=== PATIENT | male | born 1945 | race Caucasian/White ===

== ENCOUNTER → 2016-12-19 | Emergency (ER) | payer OTHER ==
--- NOTE | 2016-12-19 19:23 | ED CLINICAL REPORT ---
Clinical Report - Physicians/Mid Levels [facility] [address] [place] [address] 12/19/2016 18:56 Patient: ARLENE PANDA Time Seen: 19:08. Arrived- By ambulance. Historian- EMS personnel. HISTORY OF PRESENT ILLNESS Chief Complaint: "code stroke". This started today. (the patient was brought in by EMS. They report that his saw him early this morning and that he was in his usual state of health. However they say that he started feeling poorly at 3:00 this afternoon. They were concerned that maybe he was having a stroke because he was slurring his speech and seemed confused though they report that his FAST exam was otherwise unremarkable. The patient tells me that he is having severe pain in his back and doesn't feel well but is not able to be more specific. EKGs performed by the ambulance crew show atrial fibrillation and the patient denies that he has ever had this. Medics state that the patient has a history of an aortic aneurysm.). REVIEW OF SYSTEMS Unobtainable (due to severe distress). PAST HISTORY Problems: Aortic Aneurysm. Additional Surgeries: Unknown. Medications: Herbal medications only. Allergies: No Known Drug Allergy. None. ADDITIONAL NOTES The nursing notes have been reviewed. PHYSICAL EXAM Vital Signs: 12/19/2016 19:17 BP: 110/95. HR: 110. O2 saturation: 95%. Temp: 94.8 F. Have been reviewed. Appearance: Alert. He appears ill and uncomfortable, is ashen, is confused and has slurred speech. Patient in severe distress. Eyes: Pupils equal, round and reactive to light. ENT: Pharynx normal. Neck: Neck supple. No carotid bruit. CVS: Tachycardia. Respiratory: Decreased air movement. No rales or rhonchi. Abdomen: No visible injury. Soft and nontender. Bowel sounds normal. No organomegaly. No mass. Obese. Skin: Cool skin. Extremities: Extremities exhibit normal ROM. No calf tenderness. No lower extremity edema. Neuro: Altered mental status: confused and disoriented to place and time. No cranial nerve deficit. No motor deficit. He has had generalized weakness. No sensory deficit. PROGRESS AND PROCEDURES Course of Care: 19:08. I discussed the case with Dr. Maki Pappas, emergency physician at [facility] in [place]. I explained to her that as we were working the patient up and had him on the CT scanner in order to evaluate his brain, chest abdomen and pelvis given his prior aortic aneurysm history and his back pain, our CT scanner stopped functioning. Therefore I contacted her and requested that we be able to transfer him so that he could be worked up further. She agreed to the transfer. He was placed back in the ambulance and they proceeded to that hospital. Consult obtained. Disposition: Transferred. CLINICAL IMPRESSION New onset atrial fibrillation. Acute back pain. Possible aortic dissection. known aortic aneurysm. (Electronically signed by Anthony Denson MD 12/19/2016 21:34) Addenda for ARLENE PANDA VisitID: [id number] Date: 12/19/2016 12/19/2016 20:29 [place] [facility] [place]; (Electronically signed by Annita Mcgarry Tech1 - 12/19/2016 20:29)
--- NOTE | 2016-12-19 19:23 | ED ORDER SUMMARY ---
..... Patient: ARLENE PANDA OrderSheet [facility] VisitID: [id number] [address] [place] [address] 71y, M Registration Date/Time: 12/19/2016 ORDER SHEET Weight: 90.7 kg (estimated) Allergies: No Known Drug Allergy, None GENERAL ORDERS: CT Head wo Cont Urgent (18:57 12/19/2016 HSoule verbal order read back to Natali CALVIN) (Ack 18:59 North) MEDICATION ORDERS: IV FLUIDS: ORDER SHEET NOTES: [Electronically signed by Myesha Rodriguez R.N. (19:37 12/19/2016)] [Electronically signed by Anthony Denson MD (21:34 12/19/2016)] [Electronically locked/signed by Myesha Rodriguez R.N. (19:37 12/19/2016)]
--- NOTE | 2016-12-19 19:23 | ED CLINICAL REPORT ---
Clinical Report - Physicians/Mid Levels [facility] [address] [place] [address] 12/19/2016 18:56 Patient: ARLENE PANDA Time Seen: 19:08. Arrived- By ambulance. Historian- EMS personnel. HISTORY OF PRESENT ILLNESS Chief Complaint: "code stroke". This started today. (the patient was brought in by EMS. They report that his saw him early this morning and that he was in his usual state of health. However they say that he started feeling poorly at 3:00 this afternoon. They were concerned that maybe he was having a stroke because he was slurring his speech and seemed confused though they report that his FAST exam was otherwise unremarkable. The patient tells me that he is having severe pain in his back and doesn't feel well but is not able to be more specific. EKGs performed by the ambulance crew show atrial fibrillation and the patient denies that he has ever had this. Medics state that the patient has a history of an aortic aneurysm.). REVIEW OF SYSTEMS Unobtainable (due to severe distress). PAST HISTORY Problems: Aortic Aneurysm. Additional Surgeries: Unknown. Medications: Herbal medications only. Allergies: No Known Drug Allergy. None. ADDITIONAL NOTES The nursing notes have been reviewed. PHYSICAL EXAM Vital Signs: 12/19/2016 19:17 BP: 110/95. HR: 110. O2 saturation: 95%. Temp: 94.8 F. Have been reviewed. Appearance: Alert. He appears ill and uncomfortable, is ashen, is confused and has slurred speech. Patient in severe distress. Eyes: Pupils equal, round and reactive to light. ENT: Pharynx normal. Neck: Neck supple. No carotid bruit. CVS: Tachycardia. Respiratory: Decreased air movement. No rales or rhonchi. Abdomen: No visible injury. Soft and nontender. Bowel sounds normal. No organomegaly. No mass. Obese. Skin: Cool skin. Extremities: Extremities exhibit normal ROM. No calf tenderness. No lower extremity edema. Neuro: Altered mental status: confused and disoriented to place and time. No cranial nerve deficit. No motor deficit. He has had generalized weakness. No sensory deficit. PROGRESS AND PROCEDURES Course of Care: 19:08. I discussed the case with Dr. Maki Pappas, emergency physician at [facility] in [place]. I explained to her that as we were working the patient up and had him on the CT scanner in order to evaluate his brain, chest abdomen and pelvis given his prior aortic aneurysm history and his back pain, our CT scanner stopped functioning. Therefore I contacted her and requested that we be able to transfer him so that he could be worked up further. She agreed to the transfer. He was placed back in the ambulance and they proceeded to that hospital. Consult obtained. Disposition: Transferred. CLINICAL IMPRESSION New onset atrial fibrillation. Acute back pain. Possible aortic dissection. known aortic aneurysm. (Electronically signed by Anthony Denson MD 12/19/2016 21:34) Addenda for ARLENE PANDA VisitID: [id number] Date: 12/19/2016 12/19/2016 20:29 Authorization for transfer faxed [place] [facility] [place]; (Electronically signed by Annita Mcgarry Tech1 - 12/19/2016 20:29)
--- NOTE | 2016-12-19 19:23 | ED NURSING NOTES ---
Clinical Report - Nurses [facility] [address] [place] [address] 12/19/2016 18:56 Patient: ARLENE PANDA [facility]#: [id number] TRIAGE Triage time 1851Dec 19 2016. Acuity: LEVEL 2. Chief Complaint: IMPAIRED SPEECH. Alert. SUMMER COMA SCORE: [place] Coma Scale: 14- eyes open spontaneously (4); best verbal response- disoriented (4); best motor response- obeys commands (6). --19:26 Myesha Rodriguez R.N. 19:17 12/19/16. BP: 110/95. HR: 110. O2 saturation: 95%. Temp: 94.8 F. --19:26 Myesha Rodriguez R.N. Weight: 90.7 kg estimated. Height/Length: 70 inches Estimated. BMI: 28.7. --18:58 Myesha Rodriguez R.N. Medications Herbal medications only. --19:20 Myesha Rodriguez R.N. Allergies No Known Drug Allergy. --19:20 Myesha Rodriguez R.N. None. --19:20 Myesha Rodriguez R.N. History Arrived by EMS. Historian: patient. This started today. Patient was reported to be last known well (0530 by , pt states 1500). Onset was abrupt. (1500). He has had altered mental status and difficulty with speech. 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 PAST MEDICAL HX: Immunizations: status is unknown. --19:26 Myesha Rodriguez R.N. PROBLEMS: Aortic Aneurysm. --19:21 Myesha Rodriguez R.N. ADDITIONAL SURGERIES: Unknown. --19:21 Myesha Rodriguez R.N. NURSING PROGRESS NOTES Patient transported to CT by stretcher with nurse. (185). Patient waiting for transportation. ( pt was on CT table at [address] was down. He was then loaded on stretcher and transferred to [place] at 1908). --19:29 Myesha Rodriguez R.N. Finger stick glucose: 228 mg/dL 1857Dec 19 2016; performed by nurse. --19:33 Myesha Rodriguez R.N. DISPOSITION / DISCHARGE 18:56 12/19/2016 Site #1 started prior to arrival by EMS via IV in the left antecubital space with an 20g angiocath. Saline lock flushed with 10 mL saline. --19:36 Myesha Rodriguez R.N. Departure time: 1907. Condition at departure: unchanged. Transferred to [facility]. Summary of care provided to transfer facility (19:08 Dec 19 2016). Report was given to a nurse via a phone call. Report included patient's care, treatment and condition (including any recent changes). All questions were answered. Report was acknowledged. (MARCE CARRANZA). --19:36 Myesha Rodriguez R.N. Locked/Released at 12/19/2016 19:37 by Myesha Rodriguez R.N.
--- NOTE | 2016-12-19 19:23 | ED NURSING NOTES ---
Clinical Report - Nurses [facility] [address] [place] [address] 12/19/2016 18:56 Patient: ARLENE PANDA [facility]#: [id number] TRIAGE Triage time 1851Dec 19 2016. Acuity: LEVEL 2. Chief Complaint: IMPAIRED SPEECH. Alert. SUMMER COMA SCORE: [place] Coma Scale: 14- eyes open spontaneously (4); best verbal response- disoriented (4); best motor response- obeys commands (6). --19:26 Myesha Rodriguez R.N. 19:17 12/19/16. BP: 110/95. HR: 110. O2 saturation: 95%. Temp: 94.8 F. --19:26 Myesha Rodriguez R.N. Weight: 90.7 kg estimated. Height/Length: 70 inches Estimated. BMI: 28.7. --18:58 Myesha Rodriguez R.N. Medications Herbal medications only. --19:20 Myesha Rodriguez R.N. Allergies No Known Drug Allergy. --19:20 Myesha Rodriguez R.N. None. --19:20 Myesha Rodriguez R.N. History Arrived by EMS. Historian: patient. This started today. Patient was reported to be last known well (0530 by , pt states 1500). Onset was abrupt. (1500). He has had altered mental status and difficulty with speech. 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 PAST MEDICAL HX: Immunizations: status is unknown. --19:26 Myesha Rodriguez R.N. PROBLEMS: Aortic Aneurysm. --19:21 Myesha Rodriguez R.N. ADDITIONAL SURGERIES: Unknown. --19:21 Myesha Rodriguez R.N. NURSING PROGRESS NOTES Patient transported to CT by stretcher with nurse. (185). Patient waiting for transportation. ( pt was on CT table at [address] was down. He was then loaded on stretcher and transferred to [place] at 1908). --19:29 Myesha Rodriguez R.N. Finger stick glucose: 228 mg/dL 1857Dec 19 2016; performed by nurse. --19:33 Myesha Rodriguez R.N. DISPOSITION / DISCHARGE 18:56 12/19/2016 Site #1 started prior to arrival by EMS via IV in the left antecubital space with an 20g angiocath. Saline lock flushed with 10 mL saline. --19:36 Myesha Rodriguez R.N. Departure time: 1907. Condition at departure: unchanged. Transferred to [facility]. Summary of care provided to transfer facility (19:08 Dec 19 2016). Report was given to a nurse via a phone call. Report included patient's care, treatment and condition (including any recent changes). All questions were answered. Report was acknowledged. (MARCE CARRANZA). --19:36 Myesha Rodriguez R.N. Locked/Released at 12/19/2016 19:37 by Myesha Rodriguez R.N.
--- NOTE | 2016-12-19 19:23 | ED ORDER SUMMARY ---
..... Patient: ARLENE PANDA OrderSheet [facility] VisitID: [id number] [address] [place] [address] 71y, M Registration Date/Time: 12/19/2016 ORDER SHEET Weight: 90.7 kg (estimated) Allergies: No Known Drug Allergy, None GENERAL ORDERS: CT Head wo Cont Urgent (18:57 12/19/2016 HSoule verbal order read back to Natali CALVIN) (Ack 18:59 North) MEDICATION ORDERS: IV FLUIDS: ORDER SHEET NOTES: [Electronically signed by Myesha Rodriguez R.N. (19:37 12/19/2016)] [Electronically signed by Anthony Denson MD (21:34 12/19/2016)] [Electronically locked/signed by Myesha Rodriguez R.N. (19:37 12/19/2016)]
--- NOTE | 2016-12-19 21:34 | ED DISCHARGE INSTRUCTIONS ---
Patient: ARLENE PANDA General Instructions [facility] VisitID: [id number] [address] [place] [address] 71y, M Registration Date/Time: 12/19/2016 New onset atrial fibrillation. Acute back pain. known aortic aneurysm. (Electronically signed by Anthony Denson MD 12/19/2016 21:34)
--- NOTE | 2016-12-19 21:34 | ED MED RECONCILIATION SUMMARY ---
Patient: ARLENE PANDA Medication Reconciliation Report [facility] VisitID: [id number] [address] [place] [address] 71y, M Registration Date/Time: 12/19/2016 Weight: 90.7 kg Height/Length: 70 in. BMI: 28.7 ALLERGIES: No Known Drug Allergy, None The patient's Home Medications are listed below: THE FOLLOWING MEDICATIONS NEED TO BE RECONCILED: Herbal medications only The source(s) of the original Home Medication information: Not obtained. The following Medications were given to the patient in the Emergency Department: None. The following Medications were prescribed to the patient: None.
--- NOTE | 2016-12-19 21:34 | ED DISCHARGE INSTRUCTIONS ---
Patient: ARLENE PANDA General Instructions [facility] VisitID: [id number] [address] [place] [address] 71y, M Registration Date/Time: 12/19/2016 New onset atrial fibrillation. Acute back pain. known aortic aneurysm. (Electronically signed by Anthony Denson MD 12/19/2016 21:34)
--- NOTE | 2016-12-19 21:34 | ED MAR SUMMARY ---
..... Medication Administration Record [facility] [address] [place], [place] [id number] Patient: ARLENE PANDA Visit ID: [id number] 71y, M Weight: 90.7 kg Height/Length: 70 in BMI: 28.7 ALLERGIES: No Known Drug Allergy, None
--- NOTE | 2016-12-19 21:34 | ED MAR SUMMARY ---
..... Medication Administration Record [facility] [address] [place] [id number] Patient: ARLENE PANDA Visit ID: [id number] 71y, M Weight: 90.7 kg Height/Length: 70 in BMI: 28.7 ALLERGIES: No Known Drug Allergy, None
--- NOTE | 2016-12-19 21:34 | ED MED RECONCILIATION SUMMARY ---
Patient: ARLENE PANDA Medication Reconciliation Report [facility] VisitID: [id number] [address] [place] [address] 71y, M Registration Date/Time: 12/19/2016 Weight: 90.7 kg Height/Length: 70 in. BMI: 28.7 ALLERGIES: No Known Drug Allergy, None The patient's Home Medications are listed below: THE FOLLOWING MEDICATIONS NEED TO BE RECONCILED: Herbal medications only The source(s) of the original Home Medication information: Not obtained. The following Medications were given to the patient in the Emergency Department: None. The following Medications were prescribed to the patient: None.
--- NOTE | 2016-12-22 12:13 | DIAGNOSTIC IMAGING REPORT ---
PROCEDURE: CT HEAD WITHOUT CONTRAST (failed examination). INDICATION: Possible CVA. FINDINGS: The patient was unable to undergo study due to CT equipment failure. IMPRESSION: 1. Failed examination (noncontrast head CT).
== END ==
LOC: ED SRH 18:55
DX: I48.91 Unspecified atrial fibrillation (principal); M54.9 Dorsalgia, unspecified; I71.4 Abdominal aortic aneurysm, without rupture